=== PATIENT | female | born 1960 | race African-American/Black ===

== ENCOUNTER 2021-02-05 11:03 | Inpatient (IN) | payer OTHER ==
[2021-02-05] VITALS (13 sets, daily range): BP systolic 100–151; BP diastolic 70–95
[~2021-02-05] VITALS: Ht 165.1 cm; Wt 102.1 kg
[2021-02-05] MEDS ORDERED: SODIUM CHLORIDE 0.9% 500 ML IV ONE (12:00)
[2021-02-05 13:44] LABS: BASOPHILS % 0.8 % (0.0-2.0); CLARITY URINE TURBID (CLEAR); COLOR URINE YELLOW (YELLOW); EOSINOPHILS % 1.6 % (0.0-5.0); HEMATOCRIT. 30.9 % (36.0-48.0); HEMOGLOBIN. 10.5 g/dL (12.0-16.0); KETONES URINE NEGATIVE (NEGATIVE); LEUKOCYTE ESTERASE URINE 3+ (NEGATIVE); LYMPHOCYTES % 11.8 % (20.0-50.0); MEAN CORPUSCULAR HEMOGLOBIN 29.8 pg (28.0-32.0); MEAN CORPUSCULAR VOLUME 87.2 fL (81.0-99.0); MEAN PLATELET VOLUME 8.4 fl (7.4-10.4); MONOCYTES % 5.6 % (2.0-8.0); NEUTROPHILS % 80.2 % (40.0-76.0); NITRITE URINE NEGATIVE (NEGATIVE); OCCULT BLOOD URINE 2+ (NEGATIVE); PLATELET 236 x1000/uL (130-400); PROTEIN URINE 1+ (NEGATIVE); RED BLOOD CELL COUNT 3.54 mill/uL (4.2-5.4); RED CELL DISTRIBUTION WIDTH 17.4 % (11.6-14.6); SPECIFIC GRAVITY URINE 1.008 (1.005-1.030); UROBILINOGEN URINE 0.2 E.U./dL (0.2-1.0)
[2021-02-05 14:27] LABS: CHLORIDE 101 mEq/L (98-107)
[2021-02-05] MEDS ORDERED: SODIUM CHLORIDE 0.9% 1,000 ML IV ONE (14:45)
[2021-02-05] MEDS ORDERED: PIPERACILLIN/TAZ 3.375G PREMIX 50 ML IV ONE (14:45)
[2021-02-05] MEDS ORDERED: PIPERACILLIN/TAZ 3.375G PREMIX 50 ML IV NR (15:00)
[2021-02-05] MEDS ORDERED: DOPAMINE 400MG/250ML PREMIX 250 ML IV ONE (15:45)
[2021-02-05] MEDS ORDERED: PHENYLEPHRINE 100 MG in DEXT 5% WATER 240 ML IV PRN ×2 (17:00→17:15)
[2021-02-05] MEDS ORDERED: ONDANSETRON HCL 4MG/2ML INJ IV ONE (18:15)
[2021-02-05] MEDS ORDERED: FUROSEMIDE 40MG/4ML VIAL IVP ONE (18:45)
[2021-02-05] MEDS ORDERED: IPRATROPIUM/ALBUTEROL 0.5-3(2.5)MG/3ML NEB HHN PRN (22:30)
[2021-02-05] MEDS ORDERED: HYDROCODONE/ACETAMINOPHEN 5/325MG TABLET PO PRN (22:30)
[2021-02-05] MEDS ORDERED: ONDANSETRON HCL 4MG/2ML INJ IV PRN (22:30)
[2021-02-05] MEDS ORDERED: CLONIDINE 0.1MG TABLET PO PRN (22:30)
[2021-02-05] MEDS: FUROSEMIDE 20MG/2ML VIAL IVP SCH (23:28)
[2021-02-05] MEDS: CEFTRIAXONE 1,000 MG in DEXTROSE 5% WATER 50 ML IV SCH (23:29)
[2021-02-06] VITALS (88 sets, daily range): BP systolic 79–124; BP diastolic 25–89
[2021-02-06] MEDS: AZITHROMYCIN 500 MG in DEXT 5% WATER 250 ML IV SCH (00:36)
[2021-02-06 02:01] LABS: *AMPHETAMINES SCREEN URINE NEGATIVE (NEGATIVE); *BARBITURATES SCREEN URINE NEGATIVE (NEGATIVE); *BENZODIAZEPINES SCREEN URINE NEGATIVE (NEGATIVE)
[2021-02-06 02:02] LABS: *COCAINE SCREEN URINE NEGATIVE (NEGATIVE); CANNABINOID URINE SCREEN NEGATIVE (NEGATIVE); METHADONE URINE SCREEN NEGATIVE (NEGATIVE); OPIATES URINE SCREEN NEGATIVE (NEGATIVE); PHENCYCLIDINE URINE SCREEN NEGATIVE (NEGATIVE)
[2021-02-06] MEDS: HEPARIN 5000 UNITS/ML VIAL SUBCUT SCH ×3 (05:56→22:08)
[2021-02-06 06:12] LABS: BASOPHILS % 0.6 % (0.0-2.0); EOSINOPHILS % 1.7 % (0.0-5.0); HEMATOCRIT. 33.6 % (36.0-48.0); LYMPHOCYTES % 12.9 % (20.0-50.0); MEAN CORPUSCULAR HEMOGLOBIN 28.8 pg (28.0-32.0); MEAN CORPUSCULAR VOLUME 88.3 fL (81.0-99.0); MEAN PLATELET VOLUME 8.4 fl (7.4-10.4); MONOCYTES % 5.7 % (2.0-8.0); NEUTROPHILS % 79.1 % (40.0-76.0); PLATELET 253 x1000/uL (130-400)
[2021-02-06] MEDS: FUROSEMIDE 20MG/2ML VIAL IVP SCH ×2 (06:47→17:19)
[2021-02-06] MEDS ORDERED: NALOXONE HCL 0.4MG/ML VIAL IV PRN (07:45)
[2021-02-06] MEDS: PANTOPRAZOLE SODIUM 40 MG/VIAL IV SCH (08:19)
[2021-02-06] MEDS ORDERED: CEFTRIAXONE 1 G PREMIX 50 ML IV SCH (09:00)
[2021-02-06] MEDS ORDERED: POTASSIUM CHLORIDE 20MEQ TABLET SR PO NR (12:00)
[2021-02-06] MEDS: MIDODRINE HCL 5MG TABLET PO SCH ×2 (12:44→17:19)
[2021-02-06 13:07] LABS: PHOSPHORUS 2.6 mg/dL (2.5-4.9)
[2021-02-06] MEDS ORDERED: SILD20TA PO (14:12)
[2021-02-06] MEDS ORDERED: SEVE800T8 MT (14:12)
[2021-02-06] MEDS ORDERED: FURO-152 MT (14:12)
[2021-02-06] MEDS ORDERED: ACETAMINOPHEN 650MG/20.3ML UDC PO PRN (15:00)
[2021-02-07] VITALS (79 sets, daily range): BP systolic 93–145; BP diastolic 27–103
[2021-02-07] MEDS: CEFTRIAXONE 1,000 MG in DEXTROSE 5% WATER 50 ML IV SCH ×2 (00:27→23:47)
[2021-02-07] MEDS: AZITHROMYCIN 500 MG in DEXT 5% WATER 250 ML IV SCH (01:26)
[2021-02-07] MEDS: HEPARIN 5000 UNITS/ML VIAL SUBCUT SCH ×3 (05:46→22:14)
[2021-02-07 05:53] LABS: CHLORIDE 102 mEq/L (98-107)
[2021-02-07 05:54] LABS: BASOPHILS % 1.4 % (0.0-2.0); HEMATOCRIT. 31.6 % (36.0-48.0); HEMOGLOBIN. 10.4 g/dL (12.0-16.0); LYMPHOCYTES % 19.8 % (20.0-50.0); MEAN CORPUSCULAR HEMOGLOBIN 28.7 pg (28.0-32.0); MEAN CORPUSCULAR VOLUME 87.7 fL (81.0-99.0); MEAN PLATELET VOLUME 8.5 fl (7.4-10.4); MONOCYTES % 6.2 % (2.0-8.0); NEUTROPHILS % 70.6 % (40.0-76.0); PLATELET 262 x1000/uL (130-400); RED BLOOD CELL COUNT 3.61 mill/uL (4.2-5.4); RED CELL DISTRIBUTION WIDTH 16.7 % (11.6-14.6)
[2021-02-07] MEDS ORDERED: PHENYLEPHRINE 100 MG in DEXT 5% WATER 240 ML IV PRN (06:15)
[2021-02-07] MEDS ORDERED: ALBUMIN HUMAN 12.5G/250ML (5%) IV PRN (06:15)
[2021-02-07] MEDS: FUROSEMIDE 20MG/2ML VIAL IVP SCH ×2 (06:35→16:39)
[2021-02-07] MEDS: MIDODRINE HCL 5MG TABLET PO SCH ×3 (09:38→16:38)
[2021-02-07] MEDS: PANTOPRAZOLE SODIUM 40 MG/VIAL IV SCH (09:38)
[2021-02-08] VITALS (83 sets, daily range): BP systolic 78–157; BP diastolic 15–105
[2021-02-08] MEDS: AZITHROMYCIN 500 MG in DEXT 5% WATER 250 ML IV SCH (01:18)
[2021-02-08 05:48] LABS: BASOPHILS % 1.5 % (0.0-2.0); EOSINOPHILS % 2.3 % (0.0-5.0); HEMATOCRIT. 30.9 % (36.0-48.0); HEMOGLOBIN. 10.1 g/dL (12.0-16.0); LYMPHOCYTES % 21.4 % (20.0-50.0); MEAN CORPUSCULAR HEMOGLOBIN 28.8 pg (28.0-32.0); MEAN CORPUSCULAR VOLUME 87.9 fL (81.0-99.0); MEAN PLATELET VOLUME 8.3 fl (7.4-10.4); MONOCYTES % 8.3 % (2.0-8.0); NEUTROPHILS % 66.5 % (40.0-76.0); PLATELET 289 x1000/uL (130-400); RED BLOOD CELL COUNT 3.52 mill/uL (4.2-5.4); RED CELL DISTRIBUTION WIDTH 17.4 % (11.6-14.6)
[2021-02-08] MEDS: FUROSEMIDE 20MG/2ML VIAL IVP SCH ×2 (06:28→18:16)
[2021-02-08] MEDS: HEPARIN 5000 UNITS/ML VIAL SUBCUT SCH ×3 (06:28→22:41)
[2021-02-08] MEDS: MIDODRINE HCL 5MG TABLET PO SCH ×3 (08:02→18:17)
[2021-02-08] MEDS: PANTOPRAZOLE SODIUM 40 MG/VIAL IV SCH (08:02)
[2021-02-08] MEDS: CEFTRIAXONE 1,000 MG in DEXTROSE 5% WATER 50 ML IV SCH (23:57)
[2021-02-09] VITALS (41 sets, daily range): BP systolic 83–118; BP diastolic 54–83
[2021-02-09] MEDS: AZITHROMYCIN 500 MG in DEXT 5% WATER 250 ML IV SCH (01:31)
[2021-02-09 05:29] LABS: EOSINOPHILS % 2.8 % (0.0-5.0); HEMATOCRIT. 30.3 % (36.0-48.0); LYMPHOCYTES % 20.8 % (20.0-50.0); MEAN PLATELET VOLUME 8.2 fl (7.4-10.4); MONOCYTES % 6.1 % (2.0-8.0); NEUTROPHILS % 69.3 % (40.0-76.0); PLATELET 235 x1000/uL (130-400); RED BLOOD CELL COUNT 3.44 mill/uL (4.2-5.4); RED CELL DISTRIBUTION WIDTH 17.2 % (11.6-14.6)
[2021-02-09] MEDS: HEPARIN 5000 UNITS/ML VIAL SUBCUT SCH ×3 (06:19→21:35)
[2021-02-09] MEDS: FUROSEMIDE 20MG/2ML VIAL IVP SCH ×2 (06:19→17:43)
[2021-02-09] MEDS: PANTOPRAZOLE SODIUM 40 MG/VIAL IV SCH (09:05)
[2021-02-09] MEDS: MIDODRINE HCL 5MG TABLET PO SCH ×3 (09:06→17:44)
[2021-02-09] MEDS: DOCUSATE SODIUM 100MG CAPSULE PO SCH ×2 (10:29→17:43)
[2021-02-09] MEDS ORDERED: AZITHROMYCIN 500 MG TABLET PO SCH (22:00)
== END 2021-02-09 22:00 | disposition short-term general hospital (02) | DRG 871 ==
LOC: ER 11:03 → MICUNO 15:43 → ENRESERV 19:28
PROVIDERS: ADMIT Internal Medicine; ATTEND Internal Medicine
PROC: 02HV33Z Insertion of Infusion Device into Superior Vena Cava, Percutaneous Approach (ICD-10-PCS; principal; 2021-02-05)
PROC: B548ZZA Ultrasonography of Superior Vena Cava, Guidance (ICD-10-PCS; 2021-02-05)
PROC: 5A09357 Assistance with Respiratory Ventilation, Less than 24 Consecutive Hours, Continuous Positive Airway Pressure (ICD-10-PCS; 2021-02-06)
PROC: 5A09357 Assistance with Respiratory Ventilation, Less than 24 Consecutive Hours, Continuous Positive Airway Pressure (ICD-10-PCS; 2021-02-08)
PROC: 5A09357 Assistance with Respiratory Ventilation, Less than 24 Consecutive Hours, Continuous Positive Airway Pressure (ICD-10-PCS; 2021-02-09)
DX: A41.51 Sepsis due to Escherichia coli [E. coli] (principal); R65.21 Severe sepsis with septic shock; J18.9 Pneumonia, unspecified organism; T83.518A Infection and inflammatory reaction due to other urinary catheter, initial encounter; N39.0 Urinary tract infection, site not specified; E87.1 Hypo-osmolality and hyponatremia; I13.0 Hypertensive heart and chronic kidney disease with heart failure and stage 1 through stage 4 chronic kidney disease, or unspecified chronic kidney disease; I50.32 Chronic diastolic (congestive) heart failure; J96.10 Chronic respiratory failure, unspecified whether with hypoxia or hypercapnia; N17.9 Acute kidney failure, unspecified; E87.6 Hypokalemia; R94.31 Abnormal electrocardiogram [ECG] [EKG]; N18.2 Chronic kidney disease, stage 2 (mild); E66.09 Other obesity due to excess calories; R31.9 Hematuria, unspecified; D64.9 Anemia, unspecified; B96.20 Unspecified Escherichia coli [E. coli] as the cause of diseases classified elsewhere; I27.20 Pulmonary hypertension, unspecified; I36.1 Nonrheumatic tricuspid (valve) insufficiency; Z20.822 Contact with and (suspected) exposure to COVID-19; Y84.6 Urinary catheterization as the cause of abnormal reaction of the patient, or of later complication, without mention of misadventure at the time of the procedure; Y92.89 Other specified places as the place of occurrence of the external cause; Z88.6 Allergy status to analgesic agent; Z79.899 Other long term (current) drug therapy; Z87.891 Personal history of nicotine dependence; Z82.49 Family history of ischemic heart disease and other diseases of the circulatory system; Z82.3 Family history of stroke; Z87.01 Personal history of pneumonia (recurrent); Z99.81 Dependence on supplemental oxygen; Z68.37 Body mass index [BMI] 37.0-37.9, adult
CPT/HCPCS: 36415; 71045; 76770; 80048; 80053; 80061; 80305; 81003; 83605; 83735; 83880; 84100; 84145; 84443; 84484; 85025; 87077; 87186; 87426; 93005; 93306; 93970; 94660; 97166; 97535; 99291; A6261; C9113; J0456; J0696; J1265; J1644; J1940; J2370; J2543; J7030; J7040; J7060; A4315

== ENCOUNTER 2024-02-02 20:02 | Inpatient (IN) | payer OTHER ==
[~2024-02-02] VITALS: Ht 152.4 cm; Wt 85.3 kg
[~2024-02-02 20:02] MED LIST: FURO-152 MT; SEVE800T8 MT; SILD20TA PO
[2024-02-02 21:03] LABS: BASOPHILS % 0.8 % (0.0-2.0); EOSINOPHILS % 1.1 % (0.0-5.0); HEMATOCRIT. 32.4 % (36.0-48.0); LYMPHOCYTES % 9.6 % (20.0-50.0); MEAN CORPUSCULAR HEMOGLOBIN 27.6 pg (28.0-32.0); MEAN CORPUSCULAR HGB CONC 30.8 g/dL (31.0-37.0); MEAN CORPUSCULAR VOLUME 89.7 fL (81.0-99.0); MEAN PLATELET VOLUME 8.3 fl (7.4-10.4); MONOCYTES % 7.1 % (2.0-8.0); NEUTROPHILS % 81.4 % (40.0-76.0); PLATELET 242 x1000/uL (130-400); RED BLOOD CELL COUNT 3.61 mill/uL (4.2-5.4); RED CELL DISTRIBUTION WIDTH 18.5 % (11.6-14.6); WHITE BLOOD COUNT 8.6 x1000/uL (4.5-11.0)
[2024-02-02 21:11] LABS: CHLORIDE 98 mEq/L (98-107); POTASSIUM 3.7 mEq/L (3.5-5.1); SODIUM 135 mEq/L (136-145)
[2024-02-02 21:12] LABS: CARBON DIOXIDE 32 mEq/L (21-32)
[2024-02-02 21:17] LABS: CREATININE 1.4 mg/dL (0.6-1.0); GLUCOSE 93 mg/dL (70-105); UREA NITROGEN BLOOD 8 mg/dL (9-23)
[2024-02-02 21:19] LABS: TROPONIN I HIGH SENSITIVITY 11 ng/L (3.0-34)
[2024-02-02 22:02] LABS: BG BASE EXCESS 6.8 mmol/L (-2.0-2.0); BG CARBOXYHEMOGLOBIN 0.8 % (0.5-1.5); BG DEOXYHEMOGLOBIN 12.5 % (0.0-5.0); BG HCO3 ACT 30.7 mmol/L (22.0-26.0); BG METHEMOGLOBIN 0.2 % (0.0-1.5); BG OXYGEN SATURATION 87.4 % (92.0-98.5); BG OXYHEMOGLOBIN 86.5 % (94.0-97.0); BG PCO2 40.9 mmHg (35.0-45.0); BG PH 7.493 (7.350-7.450); BG PO2 52.1 mmHg (75.0-100.0); BG TOTAL HEMOGLOBIN 11.2 g/dL (12.0-18.0); BG VENT MODE ROOM AIR
[2024-02-02] MEDS: IPRATROPIUM/ALBUTEROL 0.5-3(2.5)MG/3ML NEB HHN NR (22:15)
[2024-02-02 22:16] VITALS: PULSE 82; RESP 18; O2SAT 100
[2024-02-02 23:41] VITALS: PULSE 80; RESP 18; O2SAT 100
[2024-02-02] MEDS: IPRATROPIUM/ALBUTEROL 0.5-3(2.5)MG/3ML NEB HHN ONE (23:41)
[2024-02-03] VITALS (16 sets, daily range): BP systolic 79–104; BP diastolic 52–74; PULSE 78–104; RESP 10–30; TEMP 97.5–98.5; O2SAT 96
[2024-02-03 00:59] LABS: BG BASE EXCESS 5.6 mmol/L (-2.0-2.0); BG CARBOXYHEMOGLOBIN 0.7 % (0.5-1.5); BG DEOXYHEMOGLOBIN 5.8 % (0.0-5.0); BG HCO3 ACT 29.6 mmol/L (22.0-26.0); BG METHEMOGLOBIN 0.2 % (0.0-1.5); BG OXYGEN SATURATION 94.1 % (92.0-98.5); BG OXYHEMOGLOBIN 93.3 % (94.0-97.0); BG PCO2 40.7 mmHg (35.0-45.0); BG PH 7.479 (7.350-7.450); BG PO2 69.9 mmHg (75.0-100.0); BG SAMPLE SITE RIGHT RADIAL; BG TOTAL HEMOGLOBIN 10.7 g/dL (12.0-18.0); BG VENT MODE NASAL CANNULA
[2024-02-03] MEDS ORDERED: OXYCODONE HCL 5MG TABLET PO PRN (01:15)
[2024-02-03] MEDS ORDERED: ZOLPIDEM TARTRATE 5MG TABLET PO PRN (01:15)
[2024-02-03] MEDS ORDERED: ONDANSETRON HCL 4MG/2ML INJ IV PRN (01:15)
[2024-02-03] MEDS ORDERED: DIPHENHYDRAMINE 50MG/ML VIAL IV PRN (01:15)
[2024-02-03] MEDS ORDERED: ACETAMINOPHEN 325MG TABLET PO PRN ×2 (01:15)
[2024-02-03] MEDS ORDERED: CYCLOBENZAPRINE 10MG TABLET PO PRN (01:15)
[2024-02-03] MEDS ORDERED: GUAIFENESIN 200MG/10ML SUGAR FREE UDC PO PRN (01:15)
[2024-02-03] MEDS ORDERED: IPRATROPIUM/ALBUTEROL 0.5-3(2.5)MG/3ML NEB HHN PRN (01:15)
[2024-02-03] MEDS ORDERED: MAGNESIUM/ALUMINUM HYDROXIDE/SIMETHICONE 30ML UDC PO PRN (01:15)
[2024-02-03] MEDS: MIDODRINE HCL 5MG TABLET PO NR ×2 (04:39→11:55)
[2024-02-03] MEDS: SILDENAFIL CITRATE 20MG TABLET PO SCH (06:00)
[2024-02-03] MEDS: SODIUM CHLORIDE 0.9% 3ML FLUSH IVF SCH (06:15)
[2024-02-03] MEDS: FAMOTIDINE 20MG/2ML VIAL IV SCH (09:39)
[2024-02-03] MEDS: MIDODRINE HCL 5MG TABLET PO SCH ×2 (09:39→13:00)
[2024-02-03] MEDS: IPRATROPIUM/ALBUTEROL 0.5-3(2.5)MG/3ML NEB HHN SCH (12:56)
[2024-02-03] MEDS: BUDESONIDE 0.5MG/2ML NEB HHN SCH (12:56)
[2024-02-03] MEDS ORDERED: NALOXONE HCL 0.4MG/ML VIAL IV PRN (13:45)
[2024-02-03] MEDS: FAMOTIDINE 20MG TABLET PO SCH (21:00)
[2024-02-04] VITALS (20 sets, daily range): BP systolic 77–97; BP diastolic 48–71; PULSE 81–104; RESP 17–27; TEMP 97.3–99.3; O2SAT 96–99
[2024-02-04] MEDS: MIDODRINE HCL 5MG TABLET PO NR (03:42)
[2024-02-04] MEDS: MIDODRINE HCL 5MG TABLET PO SCH (06:53)
[2024-02-04 06:56] LABS: CALCIUM 9.3 mg/dL (8.7-10.4); POTASSIUM 3.6 mEq/L (3.5-5.1)
[2024-02-04 07:04] LABS: PHOSPHORUS 3.1 mg/dL (2.5-4.9)
[2024-02-04 07:17] LABS: CREATININE 2.7 mg/dL (0.6-1.0)
[2024-02-04 07:24] LABS: BASOPHILS % 0.6 % (0.0-2.0); EOSINOPHILS % 0.3 % (0.0-5.0); HEMOGLOBIN. 9.3 g/dL (12.0-16.0); LYMPHOCYTES % 15.4 % (20.0-50.0); MEAN CORPUSCULAR HEMOGLOBIN 27.6 pg (28.0-32.0); MEAN CORPUSCULAR HGB CONC 30.9 g/dL (31.0-37.0); MEAN CORPUSCULAR VOLUME 89.3 fL (81.0-99.0); MEAN PLATELET VOLUME 8.8 fl (7.4-10.4); MONOCYTES % 10.2 % (2.0-8.0); NEUTROPHILS % 73.5 % (40.0-76.0); PLATELET 226 x1000/uL (130-400); RED BLOOD CELL COUNT 3.36 mill/uL (4.2-5.4); RED CELL DISTRIBUTION WIDTH 18.4 % (11.6-14.6); WHITE BLOOD COUNT 7.7 x1000/uL (4.5-11.0)
[2024-02-04] MEDS ORDERED: ALLO100T MT (14:21)
[2024-02-04] MEDS ORDERED: AMBR10TA3 MT (14:21)
[2024-02-05] MEDS ORDERED: FAMOTIDINE 20MG TABLET PO SCH (21:00)
== END 2024-02-04 21:00 | disposition home or self-care (01) | DRG 291 ==
LOC: ER 20:02 → 5EST 02-03 01:38 → EDBEDREQ 02-03 01:57 → EDBEDREQTM 02-03 01:57 → EDBEDREQDT 02-03 01:57 → EDBEDREQSVC 02-03 01:57
PROVIDERS: ADMIT Internal Medicine; ATTEND Internal Medicine
PROC: 5A09357 Assistance with Respiratory Ventilation, Less than 24 Consecutive Hours, Continuous Positive Airway Pressure (ICD-10-PCS; principal; 2024-02-03)
PROC: 5A09357 Assistance with Respiratory Ventilation, Less than 24 Consecutive Hours, Continuous Positive Airway Pressure (ICD-10-PCS; 2024-02-04)
DX: I13.2 Hypertensive heart and chronic kidney disease with heart failure and with stage 5 chronic kidney disease, or end stage renal disease (principal); I50.33 Acute on chronic diastolic (congestive) heart failure; N18.6 End stage renal disease; J96.01 Acute respiratory failure with hypoxia; J44.1 Chronic obstructive pulmonary disease with (acute) exacerbation; G47.33 Obstructive sleep apnea (adult) (pediatric); E66.9 Obesity, unspecified; Z99.2 Dependence on renal dialysis; F17.200 Nicotine dependence, unspecified, uncomplicated; Z68.36 Body mass index [BMI] 36.0-36.9, adult; I27.20 Pulmonary hypertension, unspecified; I95.89 Other hypotension; G89.4 Chronic pain syndrome; Z79.899 Other long term (current) drug therapy; Z82.49 Family history of ischemic heart disease and other diseases of the circulatory system; Z87.01 Personal history of pneumonia (recurrent)
CPT/HCPCS: 36415; 36600; 71045; 76604; 80048; 82375; 82805; 83880; 84100; 84484; 85025; 93005; 94640; 94660; 99291; J3490; J7626

== ENCOUNTER 2024-08-13 11:08 | Emergency (ER) | payer MEDICARE, OTHER ==
[~2024-08-13] VITALS: Ht 170.2 cm; Wt 70.0 kg
[~2024-08-13 11:08] MED LIST changes: +ALLO100T MT; +AMBR10TA3 MT; -FURO-152 MT; -SILD20TA PO
[2024-08-13 11:10] VITALS: O2SAT 100
[2024-08-13] MEDS: MORPHINE SULFATE 2 MG/ML INJ (NOT FOR IM USE) IV ONE (11:52)
[2024-08-13] MEDS: SODIUM CHLORIDE 0.9% 500 ML IV ONE (11:52)
[2024-08-13] MEDS: ONDANSETRON HCL 4MG/2ML INJ IV ONE (11:52)
[2024-08-13] MEDS: ACETAMINOPHEN 325MG TABLET PO ONE (11:53)
[2024-08-13 12:13] LABS: BASOPHILS % 0.4 % (0.0-2.0); EOSINOPHILS % 1.1 % (0.0-5.0); HEMOGLOBIN. 8.2 g/dL (12.0-16.0); LYMPHOCYTES % 7.2 % (20.0-50.0); MEAN CORPUSCULAR HEMOGLOBIN 30.9 pg (28.0-32.0); MEAN CORPUSCULAR VOLUME 93.7 fL (81.0-99.0); MONOCYTES % 6.7 % (2.0-8.0); NEUTROPHILS % 84.6 % (40.0-76.0); PLATELET 175 x1000/uL (130-400); RED BLOOD CELL COUNT 2.67 mill/uL (4.2-5.4); RED CELL DISTRIBUTION WIDTH 15.7 % (11.6-14.6); WHITE BLOOD COUNT 6.6 x1000/uL (4.5-11.0)
[2024-08-13 12:23] LABS: CHLORIDE 96 mEq/L (98-107); POTASSIUM 3.6 mEq/L (3.5-5.1); SODIUM 138 mEq/L (136-145)
[2024-08-13 12:24] LABS: CALCIUM 8.2 mg/dL (8.7-10.4); CARBON DIOXIDE 33 mEq/L (21-32)
[2024-08-13 12:29] LABS: GLUCOSE 106 mg/dL (70-105); UREA NITROGEN BLOOD 56 mg/dL (9-23)
[2024-08-13 12:31] LABS: ALANINE AMINOTRANSFERASE 10 IU/L (10-49); ALBUMIN 4.1 g/dL (3.2-4.8); ASPARTATE AMINOTRANSFERASE 19 IU/L (<34); BILIRUBIN TOTAL 0.5 mg/dL (0.1-1.0); PROTEIN TOTAL 6.8 g/dL (6.0-8.3)
[2024-08-13 13:23] LABS: CREATININE 3.8 mg/dL (0.6-1.0)
[2024-08-13] MEDS ORDERED: ACET-2708 MT (14:11)
[2024-08-13] MEDS ORDERED: ONDA-239 PO (14:11)
[2024-08-13 15:03] VITALS: BP 103/44; PULSE 99; RESP 21; TEMP 36.7; O2SAT 100
== END 2024-08-13 15:06 | disposition home or self-care (01) ==
LOC: ER 11:08 → CANBEDREQ 14:25 → ER 15:06
DX: R19.7 Diarrhea, unspecified (principal); R11.2 Nausea with vomiting, unspecified; I50.9 Heart failure, unspecified; J44.9 Chronic obstructive pulmonary disease, unspecified; N18.6 End stage renal disease; Z79.899 Other long term (current) drug therapy; Z88.5 Allergy status to narcotic agent; Z88.6 Allergy status to analgesic agent; Z88.8 Allergy status to other drugs, medicaments and biological substances; Z99.2 Dependence on renal dialysis
CPT/HCPCS: 99285; 96374; 96361; 96375; 80053; 83690; 85025; 36415; 93005; J2405; J2270; J7040